=== PATIENT | female | born 1970 | race Caucasian/White ===

== ENCOUNTER 2018-01-25 14:36 | Emergency (ER) | payer SELFPAY ==
[~2018-01-25] VITALS: Ht 172.7 cm; Wt 114.4 kg
[2018-01-25 15:26] LABS: HEMATOCRIT 37.4 % (36.0-46.0); HEMOGLOBIN 12.6 G/DL (11.9-15.5); MCHC 33.7 G/DL (30.0-36.0); MCV 91.9 FL (83-99); PLATELET COUNT 271 K/uL (156-360); RBC DIS.WIDTH-SD 50.7 % (39-53); RED BLOOD COUNT 4.07 M/uL (3.80-5.20); WHITE BLOOD COUNT 9.9 K/uL (4.1-10.2)
[2018-01-25 15:40] LABS: ALBUMIN 3.7 g/dL (3.2-4.8); CHLORIDE 110 mEq/L (99-109); POTASSIUM 4.3 mEq/L (3.7-5.4); SODIUM 142 mEq/L (136-147)
[2018-01-25 15:43] LABS: GLUCOSE 131 mg/dL (70-99)
[2018-01-25 15:44] LABS: TOTAL BILIRUBIN 0.4 mg/dL (0.0-1.0)
[2018-01-25 15:46] LABS: ALKALINE PHOSPHATASE 89 IU/L (3-129); CREATININE 0.7 mg/dL (0.6-1.3); GFR ESTIMATE (CALCULATED) > 59 mL/min/
[2018-01-25 15:47] LABS: UREA NITROGEN (BUN) 10 mg/dL (9-23)
[2018-01-25 15:48] LABS: AST (GOT) 22 IU/L (2-34)
[2018-01-25 15:49] LABS: ALT (GPT) 21 IU/L (3-49)
[2018-01-25 15:55] LABS: QUANTITATIVE HCG < 4.0 MIU/ML
[2018-01-25] MEDS ORDERED: LEVEMIR FL100 UNIT/1 SC (16:46)
[2018-01-25] MEDS ORDERED: NOVOLOG MI100 UNIT/2 SC (16:46)
[2018-01-25 17:42] LABS: APPEARANCE CLEAR ((CLEAR)); BILIRUBIN NEGATIVE; BLOOD NEGATIVE; COLOR YELLOW ((YELLOW)); GLUCOSE (STRIP) NEGATIVE; KETONES NEGATIVE; LEUKOCYTES NEGATIVE; NITRITE NEGATIVE; PROTEIN (STRIP) NEGATIVE; UCUL ADDED? NO; UROBILINOGEN 0.2 MG/DL (0.2-1.0)
[2018-01-25] MEDS ORDERED: EASY TOUCH HYP1 EA10 MC (18:44)
[2018-01-25 19:18] VITALS: BP 148/69
== END 2018-01-25 19:19 | disposition home or self-care (01) ==
LOC: EME 14:36
DX: E11.65 Type 2 diabetes mellitus with hyperglycemia (principal); Z76.0 Encounter for issue of repeat prescription; Z79.4 Long term (current) use of insulin; I10 Essential (primary) hypertension; Z91.128 Patient's intentional underdosing of medication regimen for other reason; R51 Headache; R11.0 Nausea; F17.200 Nicotine dependence, unspecified, uncomplicated
CPT/HCPCS: 80053; 81003; 84702; 85027; 99281; 99284